=== PATIENT | male | born 1950 | race Caucasian/White ===

== ENCOUNTER 2016-08-11 05:09 | Inpatient (IN) | payer OTHER ==
--- NOTE | 2016-08-05 17:40 | CONS ---
DATE OF ADMISSION: 08/11/2016 DATE OF CONSULTATION: TYPE OF CONSULTATION: Preoperative medical Scheduled date of admission 08/11/[address] Abad Gamez. Dear Dr. Gamez: Thank you very much for allowing me to participate in the care of Mr. Yan. HISTORY OF PRESENT ILLNESS: He is a 66-year-old gentleman who is being broug ht in electively for a right L4 to L5 microdiskectomy. At this time, he reports that he is doing re latively well. PAST MEDICAL HISTORY: 1. Lumbar disk disease. 2. Spinal stenosis. 3. Hypertension. 4. Hyperlipidemia. 5. Usual childhood diseases. 6. History of varicella. 7. Status post L5 to S1 diskectomy in . 8. Status post left ear tympanoplasty. 9. Status post revision L5 to S1 diskectomy in 2015. ALLERGIES: HE HAS NO KNOWN MEDICAL ALLERGIES. MEDICATIONS: At this time are: 1. Pravastatin 20 mg once a day. 2. [place]-3 fish oil 1 gram once a day. 3. Vitamin B12 500 mcg once a day. 4. Hydrochlorothiazide 25 mg once a day. HABITS: He is a nonsmoker, no alcohol, occasional caffeine, no usage of recreational drugs. SOCIAL HISTORY: He was born in [place] and raised there until the age of 18. 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 He lives with his spouse a nd daughters. FAMILY HISTORY: Negative for coronary artery disease. Negative for diabetes. Positive for hyperte nsion. Negative for stroke. Negative for asthma. Negative for glaucoma. Negative for migraine. Negative for colon cancer. Negative for prostate cancer. Negative for anesthesia reactions. REVIEW OF SYSTEMS: HEAD AND EYES: Fully negative. ENT: Negative. RESPIRATORY: Negative. CARDIAC: Negative. GASTROINTESTINAL: Negative. HEMATOLOGIC: Negative. UROLOGIC: Negative. ENDOCRINE: Negative. MUSCULOSKELETAL: Notable for right-sided sciatica and otherwise negative. PSYCHIATRIC: Negative. NEUROLOGIC: Negative. GENERAL: Negative. PHYSICAL EXAMINATION: VITAL SIGNS: At the time of physical exam, he has a height of 5 feet 8 inches, weight is 187, blood pressure is 120/80, pulse 68, temperature is 98.2. HEENT: NC/AT, PERRL, EOMI, anicteric, fundi are without note; tympanic membranes are without note; oropharynx demonstrates no lesions. NECK: Supple. There is a midline trachea. There is no thyromegaly; pulses are 2+ without bruits. RESPIRATORY: Clear to auscultation and percussion. CARDIAC: Demonstrates no JVD, a regular rate and rhythm without rubs, murmurs or gallops. ABDOMEN: Soft, nontender, active bowel sounds. No hepatosplenomegaly. No CVA tenderness. No marvel ias. No bruits. EXTREMITIES: Demonstrate no clubbing, cyanosis, or edema. NEUROLOGIC: Nonfocal. LABORATORY DATA: Sodium 140, potassium 4.0, chloride 102, bicarbonate 28, BUN 17, creatinine 0.7, r andom blood sugar 108. White count 6.1, hemoglobin 15.2, hematocrit 47.9, platelet count 312. Pro time 11.6 with an INR of 0.99, PTT is 23 seconds. Urinalysis 1.020, pH of 7, dipsticks negative. E KG demonstrates sinus rhythm at 63 with intervals 0.20, 0.12, 0.43 and axis of 0 degrees, normal mor phology. Chest x-ray is without note. ASSESSMENT AND PLAN: Preoperative medical consultation prior to microdiskectomy. At this time, I f ind Mr. Yan to be an acceptable surgical candidate and concur with your plans to proceed with vincent wyatt. He is at average surgical risk as compared to his age-matched peers and should do well using all standard and routine anesthesia precautions. Using the Elise's modified risk classification, he is at average surgical risk. As such, the benefits of surgery outweigh the risks. Respectively yours, Dictated By: ДМИТРИЙ PATTON MD, JR/ESTEVAN Conf#: [id number] DID#: [id number] CC: ABAD GAMEZ MD;*EndCC*
[2016-08-08 10:39] VITALS: BMI 25.9
[2016-08-11] VITALS (15 sets, daily range): BP systolic 119–132; BP diastolic 63–79; PULSE 58–66; RESP 16–21; Ht 172.7 cm; Wt 84.2 kg
[~2016-08-11] VITALS: Ht 172.7 cm; Wt 84.2 kg
[~2016-08-11 05:09] MED LIST: CEFAZOLIN 2 GM/50 ML (PMX) 50 ML IVPB ONE; HYD25 PO; LACTATED RINGER'S 1,000 ML IV* ONE; PRAV20TA63 PO
[2016-08-11] MEDS ORDERED: BUPIVACAINE 0.25% (MPF) 10 ML 10 ML VIAL ONE (06:52)
[2016-08-11] MEDS ORDERED: THROMBIN 5000 UNIT VIAL ONE (06:52)
[2016-08-11] MEDS ORDERED: GELATIN SIZE 100 SPONGE ONE (06:52)
[2016-08-11] MEDS ORDERED: POLYMYXIN/BACITRACIN 1L IRRIG ONE (06:52)
--- NOTE | 2016-08-11 06:52 | HPN ---
Date/Time of Note Date/Time of Note DATE: 08/11/16 TIME: 06:52 Interval H&P Admission Note Pt. seen H&P reviewed: No system changes JAKUB LIAO MD Aug 11, 2016 06:52
[2016-08-11] MEDS ORDERED: GLYCOPYRROLATE 0.4 MG INJ ONE (06:59)
[2016-08-11] MEDS ORDERED: ROCURONIUM 50 MG INJ ONE (06:59)
[2016-08-11] MEDS ORDERED: NEOSTIGMINE 3 MG/3 ML SYRINGE ONE (06:59)
[2016-08-11] MEDS ORDERED: CEFAZOLIN 1 GM INJ ONE (06:59)
[2016-08-11] MEDS ORDERED: PROPOFOL 20 ML ONE (06:59)
[2016-08-11] MEDS ORDERED: DEXAMETHASONE 4 MG/ML 1 ML INJ ONE (07:00)
[2016-08-11] MEDS ORDERED: MIDAZOLAM 1 MG/ML 2 ML INJ ONE (07:00)
[2016-08-11] MEDS ORDERED: ONDANSETRON 4 MG INJ ONE (07:00)
[2016-08-11] MEDS ORDERED: LIDOCAINE 2% (SDV) 5 ML INJ ONE (07:00)
[2016-08-11] MEDS ORDERED: FENTAnyl 50 MCG/ML VIAL ONE (07:00)
[2016-08-11] MEDS ORDERED: KETAMINE 500 MG INJ ONE (07:42)
[2016-08-11] MEDS ORDERED: hydrALAzine 20 MG INJ IV PRN (08:00)
[2016-08-11] MEDS ORDERED: HYDROmorphONE (0.2 MG/ML) 10ML SYG IV PRN ×2 (08:00)
[2016-08-11] MEDS ORDERED: MEPERIDINE 25 MG INJ IV PRN (08:00)
[2016-08-11] MEDS ORDERED: FENTAnyl 50 MCG/ML VIAL IV PRN ×3 (08:00)
[2016-08-11] MEDS ORDERED: EPHEDrine SULFATE 50 MG/5 ML SYG IV PRN (08:00)
[2016-08-11] MEDS ORDERED: TRIMETHOBENZAMIDE 100 MG/ML VIAL IM PRN ×2 (08:00→09:30)
[2016-08-11] MEDS ORDERED: ONDANSETRON 4 MG INJ IV PRN ×2 (08:00→09:30)
[2016-08-11] MEDS ORDERED: MIDAZOLAM 1 MG/ML 2 ML INJ IV PRN (08:00)
[2016-08-11] MEDS ORDERED: LABETALOL HCL 20MG INJ IV PRN (08:00)
[2016-08-11] MEDS ORDERED: DIPHENHYDRAMINE 50 MG INJ IV PRN (08:00)
--- NOTE | 2016-08-11 08:06 | OPPN ---
Date/Time of Note Date/Time of Note DATE: 08/11/16 TIME: 06:49 Anesthesia Eval and Record Evaluation Age 66 Sex male NPO: 8 hrs Preoperative diagnosis RECURRENT HERNIATED DISC L4-L5 ON THE RIGHT Planned procedure REDO MICRODISCECTOMY L4-L5 ON THE RIGHT Past Medical History Cardio: HTN, Dyslipidemia Surgery & Anesthesia Issues No known issue Meds Anticoagulation: No Beta Brigida within 24 hr: No Reason Beta Brigida not given: Pt. not on B-Brigida Reported Medications Pravastatin Sodium* (Pravastatin Sodium*) 20 Mg Tablet, 20 MG PO HS, TAB 12/31/15 Hydrochlorothiazide* (Hydrochlorothiazide*) 25 Mg Tab, 25 MG PO DAILY, #30 TAB 12/31/15 Allergies Coded Allergies: No Known Drug Allergies (Verified Allergy, Unknown, 08/11/16) Labs/Studies Reviewed by anesthesiologist Blood Bank Test 08/11/16 06:10 Antibody Screen NEGATIVE Blood Product Summary Counts Blood Type A NEGATIVE Crossmatch Red Blood Cells Test: N/A Studies: ECG (NSR @ 63), CXR (WNL) Pre-procedure Exam Last vitals Vital Signs Date Time Temp Pulse Resp B/P Pulse Ox O2 Delivery O2 Flow Rate FiO2 08/11/16 07:44 98.5 66 18 132/79 97 Room Air Airway: Adequate mouth opening, Adequate thyromental dist Mallampati Score: Mallampati II Teeth: Normal Lung: Normal Heart: Normal ASA Physical Status ASA physical status: 2 Planned Anesthetic General/MAC: ETT Pre-operative Attestations Prior to commencing anesthesia and surgery, the patient was re-evaluated, there was verification of: *The patient's identity *The results of appropriate recent lab work and preoperative vital signs *The above evaluation not changing prior to induction *Anesthetic plan, risk benefits, alternative and complications discussed with patient/family; questions answered; patient/family understands, accepts and wishes to proceed. Ellis Delgado M.D. Aug 11, 2016 08:05
--- NOTE | 2016-08-11 08:31 | RADRPT ---
PROCEDURE: XR Lumbar Spine one view. CLINICAL INDICATION: Low back pain. Intraoperative. TECHNIQUE: Prone portable cross-table lateral. COMPARISON: 12/31/2015. FINDINGS: For the purposes of this report, the last apparent true disc level is considered to be L5-S1. Based on this, the posterior needle markers are present at the L4 pedicle level and L5 pedicle level. IMPRESSION: 1. Intraoperative imaging as described above. RPTAT: QQ .Denny Aguilar MD, MD Date Time Electronically viewed and signed by .Denny Aguilar MD, MD on 08/11/2016 08:31 .R/
--- NOTE | 2016-08-11 08:32 | RADRPT ---
PROCEDURE: XR Lumbar Spine one view. CLINICAL INDICATION: Low back pain. Intraoperative. TECHNIQUE: Prone portable cross-table lateral. COMPARISON: 08/11/2016. 0732 hours. FINDINGS: For the purposes of this report, the last apparent true disc level is considered to be L5-S1. Based on this, the posterior surgical instrument is present overlying the mid L5 level. IMPRESSION: 1. Intraoperative imaging as described above. RPTAT: QQ .Denny Aguilar MD, MD Date Time Electronically viewed and signed by .Denny Aguilar MD, MD on 08/11/2016 08:31 .R/
[2016-08-11] MEDS ORDERED: DIPHENHYDRAMINE 50 MG CAP PO PRN (09:30)
[2016-08-11] MEDS ORDERED: HYDROCODONE/APAP (5/325) TAB PO PRN (09:30)
[2016-08-11] MEDS ORDERED: DIAZEPAM 5 MG/ML SYG IM PRN (09:30)
[2016-08-11] MEDS ORDERED: NALOXONE (0.4 MG/ML) INJ IV PRN (09:30)
[2016-08-11] MEDS ORDERED: ACETAMINOPHEN 325 MG TAB PO PRN (09:30)
[2016-08-11] MEDS ORDERED: NACL 0.9% 3 ML SYG IV SCH (09:30)
[2016-08-11] MEDS ORDERED: PROCHLORPERAZINE 10 MG TAB PO PRN (09:30)
[2016-08-11] MEDS ORDERED: DIAZEPAM 5 MG TAB PO PRN (09:30)
[2016-08-11] MEDS ORDERED: BETHANECHOL 25 MG TAB PO PRN (09:30)
[2016-08-11] MEDS ORDERED: ZOLPIDEM 5 MG TAB PO PRN (09:30)
[2016-08-11] MEDS ORDERED: AL HYDROX/MG HYDROX/SIMETH 30 ML CUP PO PRN (09:30)
--- NOTE | 2016-08-11 09:38 | OPR ---
Date/Time of Note Date/Time of Note DATE: 08/11/16 TIME: 09:32 Operative Report Preoperative Diagnosis Recurrent disc herniation L4-5 on the right. Operation Performed Redo decompressive laminectomy at L4 on the right Redo microdiscectomy L4-5 on the right Lysis of perineural and peridural adhesions L4-5 and the right Baxano transforaminal root decompression L4 on the right Revision of scar (6 cm) Lateral localizing lumbar radiographs (2) Intraoperative nerve monitoring (90 minutes) Surgeon: JAKUB LIAO MD assistant teaching professor: OVIDIO FENG MD Anesthesia: general Anesthesiologist: Ellis Delgado M.D. Estimated Blood Loss: 10 - 50 ml's Specimens Disc L4-5 on the right Tubes/Drains 2 medium Hemovac drains employed Complications: None Pt Condition Post Procedure: stable Disposition: PACU Operative\Procedure Findings At surgery, a recurrent disc herniation at L4-5 on the right with lateral recess stenosis was confirmed. JAKUB LIAO MD Aug 11, 2016 09:38
[2016-08-11] MEDS: HYDROmorphONE 0.2 MG/ML PCA IV SCH ×2 (09:47→23:11)
[2016-08-11] MEDS: HYDROmorphONE (0.2 MG/ML) 10ML SYG IV PRN ×3 (09:50→10:04)
[2016-08-11 10:40] LABS: ADD UMIC YES; URINE BILIRUBIN (Dip) NEGATIVE (NEGATIVE); URINE BLOOD (Dip) 3+ (NEGATIVE); URINE COLOR LT. YELLOW (YELLOW); URINE GLUCOSE (Dip) NEGATIVE (NEGATIVE); URINE KETONES (Dip) NEGATIVE (NEGATIVE); URINE LEUKOCYTE ESTERASE (Dip) NEGATIVE (NEGATIVE); URINE NITRITE (Dip) NEGATIVE (NEGATIVE); URINE TOTAL PROTEIN (Dip) NEGATIVE (NEGATIVE); URINE UROBILINOGEN (Dip) 0.2 E.U./dL (0.1-1.0)
[2016-08-11 10:52] LABS: BACTERIA,URINE FEW; URINE RBCS >50 /HPF (0)
--- NOTE | 2016-08-11 11:03 | OPPN ---
Date/Time of Note Date/Time of Note DATE: 08/11/16 TIME: 11:02 Post-Anesthesia Notes Post-Anesthesia Note Last documented vital signs WNL Activity: WNL Respiratory function: WNL Cardiovascular function: WNL Mental status: Baseline Pain reasonably controlled: Yes Hydration appropriate: Yes Nausea/Vomiting absent: Yes Ellis Delgado M.D. Aug 11, 2016 11:03
--- NOTE | 2016-08-11 11:41 | OPR ---
DATE OF OPERATION: 08/11/2016 PREOPERATIVE DIAGNOSIS: Recurrent disk herniation L4-5 on the right. POSTOPERATIVE DIAGNOSES: Recurrent disk herniation L4-5 on the right. OPERATION PERFORMED: 1. Redo right hemilaminotomy, L4. 2. Redo microdiskectomy L4-5 on the right. 3. Baxano transforaminal root decompression L4 on the right. 4. Revision of scar (6 cm). 5. Lateral localized lumbar radiographs (2). 6. Intraoperative nerve monitoring (90 minutes) SURGEON: Abad Gamez MD REFUELING RAMP SUPERVISOR: Ovidio Petersen MD ANESTHESIA: General endotracheal. ANESTHESIOLOGIST: Ellis Delgado MD ESTIMATED BLOOD LOSS: 25 mL, none replaced. DRAINS: Two medium Hemovac drains employed. COMPLICATIONS: None. PERTINENT HISTORY AND PHYSICAL: This is a 66-year-old male who sustained an injury to his back in t he course of employment on 09/26/2015. He has had extensive care since that time including lumbar s urgery in approximately February of 2016 at L4-L5. He did well initially, but then had recurrent fernando k and right leg pain and postoperative workup including an MRI of the lumbar spine with contrast enh ancement revealed a recurrent disk herniation at L4-L5 on the right. Treatment options were discuss ed with the patient, who elected to proceed with surgery. OPERATIVE FINDINGS AT SURGERY: A small to moderate recurrent herniation at L4-5 on the right with s ome residual lateral recess stenosis was identified. The baseline intraoperative nerve monitoring r evealed a decrease in the L4 potential on the right of 50% and the L5 potential on the right of 80%. These both returned to normal at the completion of surgery. OPERATIVE PROCEDURE: With the patient in supine position after satisfactory induction of general en dotracheal anesthesia by Dr. Delgado, the patient was turned to the prone kneeling position on the Harriet frame. All pressure points were carefully padded. The back was prepped and draped in usu al sterile fashion. Athrombic pumps were applied to the legs below the knees to prevent venous thu is during and after the procedure. An indwelling Sierra catheter was also placed preoperatively to f acilitate bladder drainage during and after procedure. Two spinal needles were placed next to what was felt to be the L4 and L5 spinous processes, lateral roentgenogram was taken to confirm anatomic localization. A 6 cm incision then carried out midline through the previous scar through skin and subcutaneous tis meka to the deep fascia. Superficial retractors were placed and hemostasis secured with electrocaute ry. The L3 spinous process was identified, and unilateral subperiosteal dissection carried out at L 3 on the right. Deep retractors were placed and deep hemostasis secured with electrocautery. The d issection was then carried distally to the L4-L5 facet joint and deep retractors were placed at the L4-L5 facet level. A second intraoperative radiograph was taken which confirmed anatomic localizati on. The scar was peeled off the medial aspect of the facet joint, and the 1, 2 and 3 mm Kerrison pu nch was used to perform a medial facetectomy and foraminotomy. The operating microscope was moved i nto place. The small hand osteotome, mallet was used to perform a medial facetectomy as well. The L5 root was identified and mobilized medially and protected with Carole nerve root retractor using microdissection technique. This revealed a lysis of perineural and peridural adhesions at this lev el. A 15 blade knife was then used to cut a rectangular window in the annulus and posterior longitudinal ligament and multiple degenerative disk fragments were harvested with pituitary rongeurs and sent t o laboratory for pathologic study. Additional fragments were harvested using Franca curettes. A marlin huggins search of the floor of the canal was made with an arthroscopic probe. No additional fragmen ts were encountered. The epidural hemostasis was secured with bipolar electrocautery on low setting . At this point, there still appeared to be some foraminal stenosis at L4 on the right, distally, a nd the Baxano instrumentation was brought onto the field. The Ipsi probe was placed into the forame n, and the guidewire passed in the usual fashion. A neuro probe was then used to isolate the exitin g L4 nerve root. With this having been assured, a 7.5 mm Baxano rasp was inserted into the foramen and multiple reciprocations carried out to enlarge the posterior aspect of the foramen. The instrum entation was withdrawn. The foramen was flushed with 20 mL of irrigating solution and hemostasis wa s again secured with bipolar electrocautery on low setting. The anesthesiologist was asked to perfo rm a Valsalva maneuver at 40 mmHg and no spinal fluid leak was noted. The wound was then closed in layers over 2 medium Hemovac drains, one below the fascia and one above the fascia using #1 Stratafix sutures on the deep paralumbar musculature and deep fascia of back, 2 -0 Stratafix sutures in subcu tissue, and a 4-0 Vicryl subcuticular cosmetic closing suture on the s kin. Dermabond and sterile compressive dressings were applied. Patient having tolerated the proced ure well, was then turned to supine position onto his bed and extubated by Dr. Delgado. He was tr ansported to recovery room in satisfactory condition. At the conclusion of the procedure, sponge, i nstrument, and needle counts were all correct. NEED FOR GROUNDWATER PROGRAMS DIRECTOR: During this spinal surgical procedure, my senior court office assistant was used to retrac t and protect the spinal nerves and dural sac. My senior court office assistant also employed the suction catheters to e vacuate blood from the surgical field to improve visualization of the neural structures. The assista nt was medically necessary to facilitate the completion of the surgery in a safe and expeditious man ner. State of [place] regulations, as well as hospital bylaws, preclude the use of non-licensed [facility] care personnel such as operating room technicians, to perform these functions. Throughout the procedure, neural monitoring was carried out by [employer] [facility] [facility] including EMG, SSEP and MEP monitoring of the L3, L4, L5 and S1 nerve roots bilaterally along with s cassie cord potentials. These were interpreted by a neurologist employed by [employer]. Dictated By: ABAD GAMEZ MD TM/NTS Conf#: [id number] DID#: [id number] CC: OVIDIO PETERSEN MD; ДМИТРИЙ PATTON MD;*[facility]*
[2016-08-11] MEDS ORDERED: BUPIVACAINE 0.25% (MPF) 30 ML INJ ONE (11:47)
[2016-08-11] MEDS: DEXTROSE 5%-0.45% NACL 1,000 ML IV SCH ×2 (12:39→19:20)
[2016-08-11] MEDS: CEPASTAT LOZENGE MT PRN (12:40)
[2016-08-11] MEDS: CEFAZOLIN 1 GM/50 ML (PMX) 50 ML IVPB SCH ×3 (12:40→23:53)
--- NOTE | 2016-08-11 17:56 | PN ---
Date/Time of Note Date/Time of Note DATE: 08/11/16 TIME: 17:54 Assessment/Plan VTE Prophylaxis VTE Prophylaxis Intervention: SCD's Lines/Catheters IV Catheter Type (from Nrsg): Saline Lock Urinary Cath still in place: Yes Reason Cath still needed: other (indicate) (Immediately postop from back surgery) Assessment/Plan Problems: (1) Essential hypertension Status: Chronic Comment: Controlled resume outpatient medication regimen (2) Hyperlipidemia Status: Chronic Comment: He will be off of his pravastatin briefly while in the hospital resume as an outpatient Qualifiers: Hyperlipidemia type: pure hypercholesterolemia Qualified Code: E78.00 - Pure hypercholesterolemia (3) Aftercare following surgery Status: Acute Comment: It appears that he is doing well and stable postoperatively Subjective 24 Hr Interval Summary Free Text/Dictation Sam 66-year-old gentleman very brought vibrant and conversant in bed eating dinner Constitutional: no complaints Respiratory: no complaints Cardiovascular: no complaints Gastrointestinal: no complaints Genitourinary: no complaints Musculoskeletal: back pain Neurologic: other (Some lower extremity numbness but better than preop) Exam/Review of Systems Vital Signs Vitals Vital Signs Date Time Temp Pulse Resp B/P Pulse Ox O2 Delivery O2 Flow Rate FiO2 08/11/16 12:30 Nasal Cannula 2.0 08/11/16 11:40 60 21 120/74 100 08/11/16 10:50 98.2 Exam Constitutional: alert, oriented Respiratory: clear to auscultation, normal air movement Cardiovascular: nl pulses, regular rate and rhythm Results Results 24 hrs Laboratory Tests Test 08/11/16 09:25 Urine Color LT. YELLOW Urine Clarity CLEAR Urine pH 6.0 Urine Specific Mcfarland 1.015 Urine Ketones NEGATIVE Urine Nitrite NEGATIVE Urine Bilirubin NEGATIVE Urine Urobilinogen 0.2 E.U./dL Urine Leukocyte Esterase NEGATIVE Urine Microscopic RBC >50 Urine Microscopic WBC 2-5 Urine Epithelial Cells FEW Urine Bacteria FEW Urine Hemoglobin 3+ H Urine Glucose NEGATIVE Urine Total Protein NEGATIVE Medications Medications Current Medications Dextrose/Sodium Chloride (D5-1/2ns) 1,000 ml @ 100 mls/hr Q10H IV Last administered on 08/11/16t 12:39; Admin Dose 100 MLS/HR; Start 08/11/16 at 09:20 Acetaminophen/ Hydrocodone Bitart (Williams (5/325)) 1 tab Q4H PRN PO PAIN LEVEL 1 -5; Start 08/11/16 at 09:30 Acetaminophen/ Hydrocodone Bitart 2 tab 2 tab Q4H PRN PO PAIN LEVEL 6-10; Start 08/11/16 at 09:30 Cefazolin Sodium (Ancef 1 Gm/50 ml (Pmx)) 50 ml @ 100 mls/hr Q6 IVPB Last administered on 08/11/16 12:40; Admin Dose 100 MLS/HR; Start 08/11/16 at 12:00; Stop 08/12/16 at 06:29 Zolpidem Tartrate (Ambien) 5 mg HS PRN PO INSOMNIA; Start 08/11/16 at 09:30 Prochlorperazine (Compazine) 10 mg Q4H PRN PO NAUSEA AND/OR VOMITING; Start 08/11/16 at 09:30 Trimethobenzamide HCl (Tigan) 200 mg Q4H PRN IM NAUSEA AND/OR VOMITING; Start 08/11/16 at 09:30 Ondansetron HCl (Zofran Inj) 4 mg Q6H PRN IV NAUSEA AND/OR VOMITING; Start 08/11 at 09:30 Al Hydrox/Mg Hydrox/Simethicone (Mag-Al Plus) 15 ml Q4H PRN PO CONSTIPATION; Start 08/11/16 at 09:30 Docusate Sodium (Colace) 100 mg BID PO ; Start 08/12/16 at 09:00 Acetaminophen (Tylenol Tab) 650 mg Q4H PRN PO TEMP GREATER THAN 101F OR MOBLEY; Start 08/11/16 at 09:30 Ascorbic Acid (Vitamin C) 1,000 mg BID PO ; Start 08/12/16 at 09:00 Ferrous Sulfate (Ferrous Sulfate (Ec)) 325 mg TID PO ; Start 08/12/16 at 09:00 Ranitidine HCl (Zantac) 150 mg BID PO ; Start 08/11/16 at 21:00 Diazepam (Valium) 5 mg Q4H PRN PO MUSCLE SPASMS; Start 08/11/16 at 09:30 Diazepam (Valium) 5 mg Q4H PRN IM MUSCLE SPASMS; Start 08/11/16 at 09:30 Phenol (Cepastat Lozenge) 1 lozenge PRN PRN MT SORE THROAT Last administered on 08/11/16 12:40; Admin Dose 1 LOZENGE; Start 08/11/16 at 09:30 Bethanechol Chloride (Urecholine) 25 mg PRN PRN PO UNABLE TO VOID; Start at 09:30 Diphenhydramine HCl (Benadryl) 50 mg Q6H PRN PO PRURITUS; Start 08/11/16 at 09: 30 Hydromorphone HCl (Dilaudid COMMISSARY CLERK) Q4PCA IV Last administered on 08/11/16 09:47 ; Admin Dose 6 MG; Start 08/11/16 at 09:30 Naloxone HCl (Narcan) 0.2 mg Q2M PRN IV RR 8 BREATHS/MIN OR LESS; Start at 09:30 ДМИТРИЙ PATTON MD Aug 11, 2016 17:55
[2016-08-11] MEDS: RANITIDINE 150 MG TAB PO SCH (21:27)
[2016-08-12 00:09] VITALS: BP 114/64; RESP 16
[2016-08-12] MEDS: CEFAZOLIN 1 GM/50 ML (PMX) 50 ML IVPB SCH (05:15)
[2016-08-12] MEDS: DEXTROSE 5%-0.45% NACL 1,000 ML IV SCH (05:15)
[2016-08-12 05:37] LABS: HEMATOCRIT 36.6 % (42.0-52.0); HEMOGLOBIN 12.4 g/dl (14.0-18.0)
[2016-08-12 05:57] LABS: POTASSIUM 3.7 mmol/L (3.5-5.1)
[2016-08-12 06:00] LABS: CALCIUM 8.4 mg/dl (8.4-10.2); CREATININE 0.66 mg/dl (0.61-1.24)
--- NOTE | 2016-08-12 07:14 | PN ---
Date/Time of Note Date/Time of Note DATE: 08/12/16 TIME: 07:12 Assessment/Plan Lines/Catheters IV Catheter Type (from Nrs): Saline Lock Sierra in Place (from Nrsg): Yes Subjective 24 Hr Interval Summary Patient is postop day #1 from redo discectomy. He is doing well, vital signs are stable, hemoglobin is 12.4. Neurovascular structures are intact distally. Hemovac overnight was 40 cc and this will continue to be monitored. 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 Possible discharge later today if drain is ready to be removed and he is cleared by physical therapy and internal medicine. Exam/Review of Systems Vital Signs Vitals Vital Signs Date Time Temp Pulse Resp B/P Pulse Ox O2 Delivery O2 Flow Rate FiO2 08/12/16 01:04 20 08/12/16 00:09 98.5 70 114/64 99 08/11/16 20:00 Nasal Cannula 2.0 Intake and Output 08/11/16 08/11/16 08/12/16 15:00 23:00 07:00 Intake Total 2050 ml 850 ml 1300 ml Output Total 270 ml 520 ml 2390 ml Balance 1780 ml 330 ml -1090 ml Results Result Diagram: 08/12/16 0424 08/12/16 0424 TREMAYNE CLARKE Aug 12, 2016 07:14
[2016-08-12 07:46] VITALS: BP 133/79; RESP 18
[2016-08-12] MEDS ORDERED: BETHANECHOL 25 MG TAB PO PRN (08:00)
[2016-08-12] MEDS: CEPASTAT LOZENGE MT PRN (08:36)
[2016-08-12] MEDS: FERROUS SULFATE (EC) 325 MG TAB PO SCH ×2 (08:37→15:00)
[2016-08-12] MEDS: RANITIDINE 150 MG TAB PO SCH (08:38)
[2016-08-12] MEDS ORDERED: DOCUSATE SODIUM 100 MG CAP PO SCH (09:00)
[2016-08-12] MEDS ORDERED: ASCORBIC ACID 500 MG TAB PO SCH (09:00)
[2016-08-12] MEDS ORDERED: HYDROCHLOROTHIAZIDE 25 MG TAB PO SCH (09:00)
[2016-08-12] MEDS: HYDROCODONE/APAP (5/325) TAB PO PRN ×2 (09:54→15:00)
[2016-08-12 13:45] LABS: ADD UMIC YES; URINE BILIRUBIN (Dip) NEGATIVE (NEGATIVE); URINE BLOOD (Dip) 3+ (NEGATIVE); URINE COLOR LT. YELLOW (YELLOW); URINE GLUCOSE (Dip) NEGATIVE (NEGATIVE); URINE KETONES (Dip) NEGATIVE (NEGATIVE); URINE LEUKOCYTE ESTERASE (Dip) TRACE (NEGATIVE); URINE NITRITE (Dip) NEGATIVE (NEGATIVE); URINE TOTAL PROTEIN (Dip) 1+ (NEGATIVE); URINE UROBILINOGEN (Dip) 0.2 E.U./dL (0.1-1.0)
[2016-08-12 14:02] LABS: BACTERIA,URINE OCCASIONAL
== END 2016-08-12 15:45 | disposition home or self-care (01) | DRG 520 ==
LOC: REC 05:09 → MS1 12:11
PROVIDERS: ADMIT Orthopaedic Surgery; ATTEND Orthopaedic Surgery
PROC: 01NB0ZZ Release Lumbar Nerve, Open Approach (ICD-10-PCS; 2016-08-11)
PROC: 4A11X4G Monitoring of Peripheral Nervous Electrical Activity, Intraoperative, External Approach (ICD-10-PCS; 2016-08-11)
PROC: 0SB20ZZ Excision of Lumbar Vertebral Disc, Open Approach (ICD-10-PCS; principal; 2016-08-11 07:00)
DX: M51.26 Other intervertebral disc displacement, lumbar region (principal); I10 Essential (primary) hypertension; E78.5 Hyperlipidemia, unspecified
CPT/HCPCS: 72020; 80048; 81001; 81003; 85014; 85018; 86850; 86900; 86901; 86920; 87086; 97116; 97162; 97530; J0690; J1100; J1170; J2175; J2250; J2405; J2710; J3010; J7042; J7120